=== PATIENT | female | born 1960 | race Caucasian/White ===

== ENCOUNTER 2021-05-21 08:28 | Outpatient (CLI) | payer OTHER, SELFPAY ==
--- NOTE | 2021-05-21 | ECHO_ITS ---
Patient Info Name: Ana Cristina Segura Age: 60 years : 1960 Gender: Female Ht: 65 in Wt: 155 lbs BSA: 1.81 m2 HR: 87 bpm BP: 131 / 80 mmHg Heart Rhythm: Sinus Rhythm Technical Quality: Good Exam Date: 05/21/2021 9:05 AM Exam Location: [facility] Patient Status: Outpatient Admit Date: 05/21/2021 Staff Ordering Physician: Ariel Long MD [employer] Machine: Adenike De La Torre RDCS Attending Provider: Ariel Long MD Referring Physician: Mercedes GONZALES; Exam Type: CA echo doppler color flow Study Info Indications I34.1 - Nonrheumatic mitral (valve) prolapse Complete two-dimensional, color flow and Doppler transthoracic echocardiogram is performed. Summary 1. Left ventricular chamber dimension is normal. 2. Left ventricular systolic function is normal, estimated at 60-65%. 3. The left ventricular diastolic function is normal. 4. Sigmoid septum. 5. Global longitudinal strain is normal at -20 %. 6. Atrial septal aneurysmal motion. Consider bubble study if clinically indicated. 7. There is no aortic valve stenosis. 8. There is no mitral valve regurgitation. 9. No evidence for significant mitral valve prolapse. 10. The mitral valve has normal leaflets. 11. There is trace tricuspid valve regurgitation. 12. No pulmonary hypertension, estimated pulmonary arterial systolic pressure is 34 mmHg. 13. The tricuspid valve leaflets are normal. Left Ventricle Left ventricular chamber dimension is normal. Left ventricular systolic function is normal, estimated at 60-65%. There is no increased left ventricular wall thickness. The left ventricular diastolic function is normal. Global longitudinal strain is normal at -20 %. Sigmoid septum. Right Ventricle Right ventricular chamber dimension is normal. Right ventricular systolic function is normal. Left Atria Left atrial chamber dimension is normal. Right Atria Right atrial chamber dimension is normal. Atrial Septum Atrial septal aneurysmal motion. Consider bubble study if clinically indicated. Aortic Valve The aortic valve is trileaflet. There is mild aortic valve sclerosis. There is no aortic valve stenosis. There is no aortic valve regurgitation. Pulmonic Valve The pulmonic valve is not well visualized. Mitral Valve The mitral valve has normal leaflets. There is no mitral valve regurgitation. No evidence for significant mitral valve prolapse. Tricuspid Valve The tricuspid valve leaflets are normal. There is trace tricuspid valve regurgitation. No pulmonary hypertension, estimated pulmonary arterial systolic pressure is 34 mmHg. Pericardium/Pleural The pericardium appears normal. There is no pericardial effusion. Inferior Vena Cava Normal inferior vena cava with >50% collapse upon inspiration consistent with normal right atrial pressure, 10 mmHg. Aorta The aortic root size at the sinus of Valsalva is normal. Left Ventricular Outflow Tract Name Value Normal LVOT 2D LVOT Diameter 2.0 cm LVOT Doppler LVOT Peak Gradient 9 mmHg LVOT Mean Gradient 5 mmHg
== END 2021-05-21 08:29 | disposition home or self-care (01) ==
LOC: ANHCARD 08:32
DX: I34.1 Nonrheumatic mitral (valve) prolapse (principal)
CPT/HCPCS: 93306

== ENCOUNTER 2022-06-14 17:51 | Emergency (ER) | payer OTHER, SELFPAY ==
--- NOTE | ~2022-06-14 | XR_ITS ---
Right Hand Technique: PA, oblique, and lateral views were obtained. Clinical History: Foreign body Findings: No acute fracture or dislocation is seen. Osseous alignment is anatomic. There is mild dege nerative change at the first CMC joint. No radiopaque foreign body seen. Soft tissues are unremarkabl e. Impression: No radiopaque foreign body seen. Mild degenerative change at the first CMC joint. Reviewed, dictated and finalized at location . Impression: No radiopaque foreign body seen. Mild degenerative change at the first CMC joint.
[2022-06-14 17:53] VITALS: BP 120/59; PULSE 98; RESP 17; TEMP 36.5; O2SAT 95
[2022-06-14 19:25] LABS: Basophils Absolute Auto 0.1 K/mm3 (0.0-0.1); Basophils Percent Auto 0.9 % (0.2-1.2); Eosinophils Absolute Auto 0.1 K/mm3 (0-0.3); Eosinophils Percent Auto 2.3 % (0-4.4); Hematocrit 38.9 % (37.0-47.0); Hemoglobin 12.6 g/dL (12.0-15.0); Lymphocytes Absolute Auto 1.84 K/mm3 (0.9-3.2); Mean Corpuscular HGB Conc 32.4 g/dl (32-36); Mean Corpuscular Hemoglobin 31.2 pg (26-34); Mean Corpuscular Volume 96.3 fl (80-100); Mean Platelet Volume 9.9 fl (7.4-10.4); Monocytes Absolute Auto 0.7 K/mm3 (0.1-0.6); Monocytes Percent Auto 12.7 % (2.6-8.5); Neutrophils Percent Auto 52.1 % (45.5-73.1); Platelet Count Result 273 k/mm3 (150-375); Red Blood Count 4.04 M/mm3 (4.2-5.4); Red Cell Distribution Width 13.2 % (11.5-14.5); White Blood Count 5.8 K/mm3 (4.5-10.0)
[2022-06-14 19:46] LABS: Alanine Aminotransferase 25 U/L (6-35); Albumin Level 4.7 g/dL (3.5-5.1); Alkaline Phosphatase 70 U/L (38-126); Anion Gap 5 mmol/L (8-16); Aspartate Amino Transferase 29 U/L (14-36); Bilirubin,Total 0.3 mg/dL (0.2-1.3); Blood Urea Nitrogen 13 mg/dL (7-17); CRP 2.4 mg/dL (<1.0); Calcium 9.3 mg/dL (8.4-10.2); Carbon Dioxide 29 mmol/L (22-30); Chloride 105 mmol/L (98-107); Estimated CRCL calculation 53 ml/min; Estimated Glomerular Filt Rate > 60; Glucose 92 mg/dL (65-110); Potassium 4.4 mmol/L (3.4-5.0); Sodium 139 mmol/L (137-145)
--- NOTE | 2022-06-14 19:49 | ED.SKABFB ---
HPI - Skin/Abscess/Foreign Bdy General Chief complaint: Skin/Abscess/Foreign Body <Ramila Crowder PA-C - Last Filed: 06/15/22 00:25> Stated complaint: celulitis <Ramila Crowder PA-C - Last Filed: 06/15/22 00:25> Time Seen by Provider: 06/14/22 18:31 <Ramila Crowder PA-C - Last Filed: 06/15/22 00:25> History of Present Illness HPI narrative: 61-year-old female reports for evaluation of right third digit pain and swelling for 4 days. Patient reports 4 days ago, she cut her finger on a clamp at work, since then has been experiencing increased pain and swelling. She went to urgent care yesterday and was given Bactrim, has taken 3 doses since with improvement in pain in her finger. She reports to the emergency department today for worsening pain into the palmar aspect of her hand. She reports having 101 degree fevers and body aches for the past 2 days. Tetanus was updated at urgent care. She is right handed. <Ramila Crowder PA-C - Last Filed: 06/15/22 00:25> Related Data Allergies/Adverse reactions: Allergies Allergy/AdvReac Type Severity Reaction Status Date / Time vancomycin Allergy Redness of Verified 06/14/22 21:38 Skin <Ramila Crowder PA-C - Last Filed: 06/15/22 00:25> Review of Systems Review of Systems: CONSTITUTIONAL: See HPI EYES: Denies visual changes, redness, or discharge. ENT: Denies rhinorrhea, congestion, sore throat, or otalgia. CARDIOVASCULAR: Denies chest pain, palpitations, or edema. RESPIRATORY: Denies cough or dyspnea. GASTROINTESTINAL: Denies abdominal pain, nausea, vomiting, or diarrhea. GENITOURINARY: Denies dysuria or hematuria. SKIN: See HPI MUSCULOSKELETAL: Denies back pain, joint pain, or myalgia. NEUROLOGIC: Denies headache, numbness, dizziness, or weakness. PSYCHIATRIC: Denies anxiety or depression. <ANMOL Morales Last Filed: 06/15/22 00:25> Exam Narrative: GENERAL: Well-appearing, well-nourished, and in no acute distress. Patient resting comfortably in exam bed. She is pleasant and conversational. HEAD: Normocephalic, atraumatic. CHEST: Clear to auscultation. No respiratory distress. No wheezes rales or rhonchi HEART: Regular rate and rhythm. No murmur heard. Normal peripheral pulses. EXTREMITIES: RUE: 0.5cm healing laceration to the middle 3rd phalanx on the 3rd digit with overlying scab, no drainage. Generalized swelling and blanching erythema to 3rd digit with tenderness along the palmar aspect, more so overlying the MCP and extending into the hand. No areas of fluctuation or induration. Full flexion and extension appreciated. Radial pulse 2+. Sensation intact. SKIN: Warm, dry, no rash. NEURO: No focal deficits. Alert and oriented x3. PSYCH: Normal mood and affect. <Ramila Crowder PA-C - Last Filed: 06/15/22 00:25> Course Course Emergency Course: Offered pain medications, patient declined. 4: During infusion of vancomycin, patient developed an itchy scalp and erythema to neck and lateral face. No mucosal swelling, angioedema, or wheezing. Vanc infusion stopped. Pt received benadryl, pepcid, solumedrol and monitored. 2216: Pt reevaluated with complete resolution of pruritis and erythema. Her vitals remain stable. <Ramila Crowder PA-C - Last Filed: 06/15/22 00:25> CAKE INSPECTOR/PA Physician Supervision For this patient encounter, I reviewed the CAKE INSPECTOR or PA documentation, treatment plan, and I was responsible for the medical decision making; and I had [id number] time with this patient. <Cayden Boateng MD - Last Filed: 06/15/22 12:22> Vital Signs Vital signs: Vital Signs Temperature 97.7 F 06/14/22 17:53 Pulse Rate 98 06/14/22 17:53 Respiratory Rate 17 06/14/22 17:53 Blood Pressure 120/59 L 06/14/22 17:53 Pulse Oximetry 95 06/14/22 17:53 Oxygen Delivery Room Air 06/14/22 17:53 Temperature 97.8 F 06/14/22 22:32 Pulse Rate 87 06/14/22 22:32 Respiratory Rate 17 06/14/22 22:32
[2022-06-14 19:55] LABS: Erythrocyte Sedimentation Rate 17 mm/hr (0-20)
[2022-06-14] MEDS: cefTRIAXone 2 GM/NS 100 ML 2 GM/100 ML BAG IVPB (20:07)
[2022-06-14] MEDS: diphenhydrAMINE HCl INJ 50 MG/ML VIAL IV PUSH (21:23)
[2022-06-14] MEDS: methylPREDNISolone SOD SUCC 125 MG VIAL IV PUSH (21:24)
[2022-06-14] MEDS: FAMOTIDINE 20 MG/2 ML VIAL IV PUSH (21:25)
[2022-06-14 22:32] VITALS: BP 135/74; PULSE 87; RESP 17; TEMP 36.6; O2SAT 99
== END 2022-06-14 22:33 | disposition home or self-care (01) ==
PROVIDERS: Emergency Provider Physician Assistant
DX: L03.011 Cellulitis of right finger (principal)
CPT/HCPCS: 36415; 73130; 80053; 85025; 85652; 86140; 96365; 96367; 96375; 99284; J0696; J1200; J2930; J3370

== ENCOUNTER 2025-02-01 10:49 | Emergency (ER) | payer OTHER, SELFPAY ==
[2025-02-01 11:02] VITALS: BP 149/87; PULSE 87; RESP 16; TEMP 36.8; O2SAT 98
--- NOTE | 2025-02-01 11:33 | ED_ITS ---
HPI - URI/Sore Throat General Chief Complaint: Upper Respiratory Infection Stated Complaint: SINUS/FEVER/CONGESTION/COUGH Time Seen by Provider: 02/01/25 11:34 Source: patient, RN notes reviewed and old records reviewed Mode of arrival: ambulatory Limitations: no limitations History of Present Illness HPI Narrative: 64-year-old female presents to the [facility] with 9 day history of sinus pain, pressure, sore throat, cough, postnasal drainage, nasal drainage. Patient reports feeling fevers. Also reports fatigue. Has been taking DayQuil and NyQuil with minimal relief Related Data Home Medications ?Medication ?Instructions ?Recorded ?Confirmed ?Last Taken ?Type alprazolam 2 mg tablet mg 02/01/25 Unknown History bupropion HCl 150 mg 24 hr tablet, mg PO 02/01/25 Unk nown History extended release dextroamphetamine-amphetamine 20 02/01/25 Unknown Hi story mg tablet sertraline 100 mg tablet mg 02/01/25 Unknown History Allergies Allergy/AdvReac Type Severity Reaction Status Date / Time vancomycin Allergy Redness of Verified 02/01/25 10:50 Skin Review of Systems Review of Systems: All systems reviewed & are unremarkable except as noted in HPI and below Constitutional: Constitutional: Reports no additional constitutional complaints ENT: Reports as per HPI Cardiovascular: Cardiovascular: Reports no additional cardiovascular complaints, Denies chest pain and Denies dyspnea Respiratory: Respiratory: Reports as per HPI, Denies chest congestion, Reports cough and Denies dyspnea Musculoskeletal: Musculoskeletal: Reports no additional musculoskeletal complaints Integumentary/Breasts: Skin/Breast: Reports system reviewed and no additional complaints, except as docu PMFSH Comments At the time of my signature, I reviewed and agree with the nursing past medical, surgical, social, and family history. There is no relevant family history pertinent to the patient complaint. Exam Const: General: cooperative, no acute distress, well developed, alert, tired appearing, uncomfortable and well nourished Nutritional Appearance: well nourished Orientation/consciousness: patient oriented x3 Limitations: no limitations HENMT: Head: normal to inspection Ears: hearing grossly normal bilaterally, external ears normal, EAC's normal, mastoids normal, no periauricular adenopathy and TM abnormal bulging on the left and erythematous on the left Face and sinus: normal facial exam, face symmetric, no erythema and sinus tenderness frontal and maxillary Mouth: Yes Normal oral and palatal mucosa present, Yes lip normal, Yes tongue normal and Yes moist mucous membranes Throat: posterior oropharynx normal, uvula midline, postnasal drainage and no uvular edema Eyes: General: appearance normal, both eyes and all related structures Alignment and Position: alignment normal Neck: Neck: normal visual inspection, full ROM, no lymphadenopathy and no meningeal signs Chest: Chest palpation & inspection: normal inspection of the chest Resp: Effort & Inspection: normal respiratory effort and able to speak in complete sentences Auscultation: clear to auscultation bilaterally, no crackles, no rales, no rhonchi and no wheezes Cardio: Rate: regular rate Skin: General skin exam: normal color and no rashes or lesions noted Neuro: General: patient oriented x3, gait normal, moves all extremities and no meningeal signs Cognition (Neuro): normal cognition Speech: normal speech Gait exam (Neuro): Normal gait present Extrem: General: normal to inspection, full ROM, capillary refill normal and normal gait Psych: Appearance: grossly normal and well kempt Mental Status: mental status grossly normal Speech and movement: Normal speech and movement present and Clear speech present Affect: normal affect Attitude: cooperative Course Course Level of Care: Express Care Visit Vital Signs Vital signs: Vital Signs Oxygen Delivery Room Air 02/01/25 10:55 Temperature 98.3 F 02/01/25 11:02 Pulse Rate 87 02/01/25 11:02 Respiratory Rate 16 02/01/25 11:02 Blood Pressure 149/87 H 02/01/25 11:02 Pulse Oximetry 98 02/01/25 11:02 Oxygen Delivery Room Air 02/01/25 10:55 reviewed MDM MDM Narrative Medical decision making narrative: patient sitting comfortably in exam room. Patient with 9 day history of URI symptoms. Patient with erythema to the left TM. Otherwise URI symptoms x9 days, will cover with antibiotic. Discussed continuing [id number]-[id number] products. Work note given. Patient appropriate for outpatient treatment with close follow-up Discharge instructions reviewed with patient, as well as provided in writing per nursing staff. The instructions also include specific and strict return/GO TO THE ER as well as f/u information. All questions have been answered, and the patient deny any further questions with discharge and discharge plan. Some parts of this dictation were generated by voice recognition software and may contain typographical and/or grammatical inaccuracies. Differential Diagnosis Differential Diagnosis: Differential diagnostic considerations for upper respiratory infection include upper respiratory infection, croup, otitis media, sinusitis, viral infection, bronchitis, influenza, pharyngitis, strep, uvulitis.? Medical Records I have reviewed the following patient records and this information was taken into consideration when formulating the assessment and plan.: previous ER visits and previous clinic visits Discharge Plan Discharge Clinical Impression: Sinusitis, Acute left otitis media Patient Disposition: Home Condition: Stable Instructions: Antibiotic Form, Sinusitis (ED), Ear Infection (GEN) Additional Instructions: It is very important to treat your symptoms. Drink plenty of water, Gatorade, Pedialyte, ice pops or Jell-O. -Alternate Tylenol and Motrin per package directions for fever or pain. You can alternate every 4 hours -Antihistamine medication such as Zyrtec/Claritin during the day can help improve symptoms. -doing daily nasal irrigations can help relieve pressure your sinuses. Things like a Neti pot -Use Flonase twice a day for 5 days then daily to help reduce the inflammation and dry up your sinuses. -You can also use Mucinex. Be sure to drink plenty of water with this medication at least 8 ounces with every dose and it is important to drink 8 to 10 glasses of water per day. Water is a natural decongestant -Eat and drink things that are easy to swallow, like tea or soup, or popsicles. -Oral rinses such as: Salt water gargles and/or may use topical anesthetic (eg. Chloraseptic spray) or lozenges to relieve dryness or throat pain). -Frequent hand washing or hand cannon crewmember is one of the best ways to prevent spread of infection. -Using a vaporizer or humidifier at night will also help thin secretions and help with coughing up phlegm. -Follow up with primary care provider in 7-10 days if condition is not improving - For new or worsening symptoms go directly to the nearest ER Patient Language: Liberian Prescriptions: New amoxicillin-pot clavulanate 875-125 mg tablet 1 tablet PO Q12H Qty: 20 0RF No Action sertraline 100 mg tablet dextroamphetamine-amphetamine 20 mg tablet alprazolam 2 mg tablet bupropion HCl 150 mg tablet extended release 24 hr PO Follow-up/Referrals: Teofilo,Isabel Daniels, [facility] [Primary Care Provider, Unknown] Stand Alone Forms: Work/School Release IP Time of Disposition: 11:45
== END 2025-02-01 11:48 | disposition home or self-care (01) ==
PROVIDERS: Emergency Provider Nurse Practitioner
DX: J32.9 Chronic sinusitis, unspecified (principal); H66.92 Otitis media, unspecified, left ear; F41.9 Anxiety disorder, unspecified; F32.A Depression, unspecified
CPT/HCPCS: 99213; G0463